=== PATIENT | male | born 1955 | race Two or more races ===

== ENCOUNTER 2019-01-09 23:27 | Emergency (ER) | payer MEDICARE ==
[~2019-01-09] VITALS: Ht 162.6 cm; Wt 59.0 kg
[2019-01-09 23:17] VITALS: BP 133/78
--- NOTE | 2019-01-09 23:20 | NUR ---
Note undone in EDM - 01/10/19 at 0149 by MASTER ED Nurse Note: Pt was found on the floor in front his shop and c/o syncope. Pt admit he was drink some alcohol. LAFMira stated the syncop was unwitnessed. no visible head trauma. pt neighbor was the person who called for EMS. as of now. pt is Alert and orinented times 3. pt is able to walk and ambulate. pt vital signs is stable. pt pupils are round and reactive to light. pt is able to move all extremities with no complication.
--- NOTE | 2019-01-09 23:37 | NUR ---
ED Nurse Note: Pt was found on the floor in front his shop and c/o syncope. Pt admit he was drink some alcohol. LAFD stated the syncope was unwitnessed. pt neighbor was the person who called for EMS. as of now. pt is Alert and oriented to person. pt pupils are round and reactive to light. no visible head trauma. pt is able to ambulte from EMS gurney to hospital bed. pt vital signs is stable. pt is able to move all extremities with no complication. no skin abnormalities noted. vital signs are within normal limits.
[2019-01-09 23:54] LABS: BASOPHILS % (AUTO) 0.5 % (0.0-2.0); EOSINOPHILS % (AUTO) 0.8 % (0.0-3.0); HEMATOCRIT 44.3 % (42.0-52.0); HEMOGLOBIN 14.9 G/DL (14.2-18.0); LYMPHOCYTES % (AUTO) 37.1 % (20.0-45.0); MEAN CORPUSCULAR VOLUME 94 FL (80-99); NEUTROPHILS % (AUTO) 55.7 % (45.0-75.0); PLATELET COUNT 231 K/UL (150-450); RED BLOOD COUNT 4.72 M/UL (4.70-6.10); RED CELL DISTRIBUTION WIDTH 11.5 % (11.6-14.8); WHITE BLOOD COUNT 8.1 K/UL (4.8-10.8)
[2019-01-10 00:09] LABS: ANION GAP 9 mmol/L (5-15); BLOOD UREA NITROGEN 12 mg/dL (7-18); CARBON DIOXIDE 28 MMOL/L (21-32); CHLORIDE 101 MMOL/L (98-107); CREATININE 0.8 MG/DL (0.55-1.30); POTASSIUM 4.6 MMOL/L (3.5-5.1); SODIUM 138 MMOL/L (136-145)
[2019-01-10 00:14] LABS: ALANINE AMINOTRANSFERASE 20 U/L (12-78); ALBUMIN 3.6 G/DL (3.4-5.0); ALBUMIN/GLOBULIN RATIO 0.7 (1.0-2.7); ALKALINE PHOSPHATASE 82 U/L (46-116); ASPARTATE AMINO TRANSFERASE 27 U/L (15-37); BILIRUBIN,TOTAL 0.3 MG/DL (0.2-1.0)
[2019-01-10 01:14] VITALS: BP 130/77
--- NOTE | 2019-01-10 01:42 | Emergency Room Report ---
History of Present Illness General Chief Complaint: Syncope Source: Patient, EMS Present Illness HPI This is a 63-year-old male brought in by EMS for altered mental status with questionable fall/syncope. 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 Patient admit to drinking tonight. He said he only had a few alcohol. Denies any pain. No trauma. Because he could not walk to his car 911 was called. Patient was brought here for evaluation. Again patient denies any trauma. Denies any other complaint. Not suicidal or homicidal. Allergies: Coded Allergies: No Known Allergies (Unverified , 01/09/19) Patient History Past Medical History: see triage record, old chart reviewed, DM Past Surgical History: other Pertinent Family History: none Social History: Reports: alcohol use Immunizations: other Reviewed Nursing Documentation: PMH: Agreed; PSxH: Agreed Nursing Documentation-PMH Past Medical History: No Stated History Review of Systems Eye: Denies: eye pain, blurred vision ENT: Denies: ear pain, nose congestion, throat swelling Respiratory: Denies: cough, shortness of breath Cardiovascular: Denies: chest pain, palpitations Gastrointestinal: Denies: abdominal pain, diarrhea, nausea, vomiting Musculoskeletal: Denies: back pain, joint pain Skin: Denies: rash Neurological: Denies: headache, numbness Endocrine: Denies: increased thirst, increased urine Hematologic/Lymphatic: Denies: easy bruising All Other Systems: negative except mentioned in HPI Physical Exam Vital Signs Date Time Temp Pulse Resp B/P (MAP) Pulse Ox O2 Delivery O2 Flow Rate FiO2 01/09/19 23:12 98.4 71 18 133/78 100 Room Air vitals normal Sp02 EP Interpretation: reviewed, normal General Appearance: well appearing, no apparent distress, alert, other - Smell of alcoholic beverage on breath Head: normocephalic, atraumatic Eyes: bilateral eye PERRL, bilateral eye EOMI ENT: hearing grossly normal, normal pharynx Neck: full range of motion, supple, no meningismus Respiratory: chest non-tender, lungs clear, normal breath sounds Cardiovascular #1: regular rate, rhythm, no murmur Gastrointestinal: normal bowel sounds, non tender, no mass, no organomegaly, no bruit, non-distended Musculoskeletal: back normal, gait/station normal, normal range of motion Psychiatric: mood/affect normal Skin: warm/dry Medical Decision Making Diagnostic Impression: Primary Impression: Alcohol intoxication Qualified Codes: F10.920 - Alcohol use, unspecified with intoxication, uncomplicated Additional Impression: Syncope Qualified Codes: R55 - Syncope and collapse ER Course Patient presents with questionable fall/syncope. CT head is negative. EKG is unremarkable. No evidence of trauma. This is probably secondary to his intoxication. We'll observe until clinical sobriety. Patient is not homeless. We'll discharge home. Lab Results Impression labs with elevated alcohol level EKG Diagnostic Results Rate: normal Rhythm: NSR ST Segments: no acute changes Rhythm Strip Diag. Results EP Interpretation: yes Rate: 72 Rhythm: NSR, no PVC's, no ectopy Chest X-Ray Diagnostic Results Chest X-Ray Diagnostic Results : Chest X-Ray Ordered: Yes # of Views/Limited/Complete: 1 View Indication: Shortness of Breath EP Interpretation: Yes Interpretation: no consolidation, no effusion, no pneumothorax, no acute cardiopulmonary disease Impression: No acute disease Electronically Signed by: Myles Mendez MD CT/MRI/US Diagnostic Results CT/MRI/US Diagnostic Results : Imaging Test Ordered: CT head Impression negative per radiologist Last Vital Signs Date Time Temp Pulse Resp B/P (MAP) Pulse Ox O2 Delivery O2 Flow Rate FiO2 01/09/19 23:17 98.4 70 18 133/78 100 Room Air Status: improved Disposition: HOME, SELF-CARE Condition: Stable Additional Instructions: Did not drink alcohol to excess. Follow-up with rehabilitation. Follow-up with your doctor in a week. Return if worse. Myles Mendez MD Jan 10, 2019 01:42
--- NOTE | 2019-01-10 01:59 | NUR ---
ED Nurse Note: when asked if the pt knew where he was, pt responded "hospital." Pt also stated he wants to use the bathroom. Pt was able to ambulte to the bathroom with steady gait.
[2019-01-10 02:06] VITALS: BP 127/75
--- NOTE | 2019-01-10 02:07 | NUR ---
ED Nurse Note: PT is DC per ERMD orders. pt vital signs, status and condition is steady and has been reported to ERMD prior to Dc and are stable. pt is alert and oriented times 4. pt is able to ambulate. pt has understood and is able to teach back Dc info. pt ID band removed. pt has left with all belongings. pt is stable for Dc as per ERMD order. pt has left with all belonging, DC notes and prescrptions.
[2019-01-10 02:09] VITALS: BP 127/75
--- NOTE | 2019-01-10 09:18 | Diagnostic Imaging Report ---
Indication: Syncope Technique: One view of the chest Comparison: none Findings: Lungs and pleural spaces are clear. The heart size is normal. The aorta is tortuous Impression: Negative
--- NOTE | 2019-01-10 09:30 | Diagnostic Imaging Report ---
Indication: Altered mental status Technique: spiral acquisitions obtained through the brain. Angled axial and coronal 5 x 5 mm slices were reconstructed. No IV contrast utilized. Radiation dose was minimized using automated exposure control Total dose length product 1344.42 mGycm. CTDIvol(s) 70.38 mGy Comparison: none FINDINGS: No acute hemorrhage or edema. No mass effect or midline shift. There is age-related enlargement of the ventricles and extra axial CSF spaces. There is periventricular deep white matter ischemic change. Normal huber-white differentiation. Visualized orbits are unremarkable. Visualized sinuses are unremarkable. There is minimal mastoid effusion on the left. Intact calvarium. IMPRESSION: Chronic and age-related changes. Negative for acute intracranial bleed or mass effect Minimal left mastoid disease This agrees with the preliminary interpretation provided overnight by [facility]. The CT scanner at [facility] is accredited by the [employer] and the scans are performed using protocols designed to limit radiation exposure to as low as reasonably achievable to attain images of sufficient resolution adequate for diagnostic evaluation
--- NOTE | 2019-01-10 16:51 | Cardiology Report ---
APPROVED REPORT EKG Measurement Heart [id number] Normal sinus rhythm Possible Left atrial enlargement Inferior infarct, age undetermined Abnormal ECG
== END 2019-01-10 02:07 | disposition home or self-care (01) ==
LOC: EDBD 23:27 → EMR 23:50
DX: F10.920 Alcohol use, unspecified with intoxication, uncomplicated (principal); R55 Syncope and collapse; F17.200 Nicotine dependence, unspecified, uncomplicated
CPT/HCPCS: 36415; 70450; 71045; 80053; 84484; 85025; 93005; 99284; G0480; 80329